=== PATIENT | male | born 1990 | race Caucasian/White ===

== ENCOUNTER 2020-10-31 14:38 | Emergency (ER) | payer OTHER ==
[~2020-10-31] VITALS: Ht 175.3 cm; Wt 97.7 kg
[2020-10-31] MEDS ORDERED: ACETAMINOPHEN 500 MG TABLET PO ONE (16:15)
[2020-10-31] MEDS ORDERED: KETOROLAC TROMETHAMINE 30 MG/ML VIAL IM ONE (16:15)
[2020-10-31] MEDS ORDERED: LIDOCAINE 5% TRANSDERMAL PATCH TD ONE (16:15)
[2020-10-31 16:32] VITALS: BP 138/90
== END 2020-10-31 17:36 | disposition home or self-care (01) ==
LOC: EMS 14:50
DX: R22.42 Localized swelling, mass and lump, left lower limb (principal); M54.6 Pain in thoracic spine
CPT/HCPCS: 71045; 73552; 93005; 96372; 99284; J1885

== ENCOUNTER 2020-12-04 11:59 | Emergency (ER) | payer OTHER ==
[~2020-12-04] VITALS: Ht 175.3 cm; Wt 95.5 kg
[2020-12-04 12:54] VITALS: BP 127/83
== END 2020-12-04 13:15 | disposition home or self-care (01) ==
LOC: EMS 12:11
DX: R23.8 Other skin changes (principal)
CPT/HCPCS: 99283

== ENCOUNTER 2021-10-13 16:20 | Emergency (ER) | payer OTHER ==
[~2021-10-13] VITALS: Ht 175.3 cm; Wt 99.0 kg
[2021-10-13] MEDS: ACETAMINOPHEN 325 MG TABLET PO ONE (17:06)
[2021-10-13] MEDS: IBUPROFEN 400 MG TABLET PO ONE (17:07)
[2021-10-13] MEDS: LIDOCAINE 5% TRANSDERMAL PATCH TD ONE (17:08)
[2021-10-13 18:27] VITALS: BP 121/63
== END 2021-10-13 18:32 | disposition home or self-care (01) ==
LOC: EMS 16:22
DX: S39.91XA Unspecified injury of abdomen, initial encounter (principal); V49.49XA Driver injured in collision with other motor vehicles in traffic accident, initial encounter; Y93.89 Activity, other specified; Y92.89 Other specified places as the place of occurrence of the external cause; Y99.8 Other external cause status
CPT/HCPCS: 99284; Z7502; Z7610

== ENCOUNTER 2021-11-11 22:41 | Emergency (ER) | payer OTHER ==
[~2021-11-11] VITALS: Ht 167.6 cm; Wt 100.0 kg
[2021-11-11] MEDS ORDERED: LORazepam 1 MG TABLET PO ONE (23:00)
[2021-11-11] MEDS ORDERED: DiphenhydrAMINE HCL 25 MG CAPSULE PO ONE (23:30)
[2021-11-11] MEDS ORDERED: HALOPERIDOL 5 MG TABLET PO ONE (23:30)
[2021-11-11] MEDS ORDERED: DiphenhydrAMINE HCL 50 MG/ML VIAL ONE (23:42)
[2021-11-11] MEDS ORDERED: HALOPERIDOL LACTATE 5 MG/ML VIAL ONE (23:42)
[2021-11-12] MEDS ORDERED: DiphenhydrAMINE HCL 50 MG/ML VIAL IM ONE (01:00)
[2021-11-12] MEDS ORDERED: HALOPERIDOL LACTATE 5 MG/ML VIAL IM ONE (01:00)
[2021-11-12 03:52] VITALS: BP 126/76
== END 2021-11-12 06:53 | disposition home or self-care (01) ==
LOC: EMS 22:41
DX: F29 Unspecified psychosis not due to a substance or known physiological condition (principal)
CPT/HCPCS: 96372; 99284; J1200; J1630